=== PATIENT | male | born 2000 | race Caucasian/White ===

== ENCOUNTER 2021-03-29 17:06 | Emergency (ER) | payer SELFPAY ==
[2021-03-29] MEDS ORDERED: Lidocaine/EPINEPHrine/Tetracaine Soln 5 ML Each TOP ONE (17:33)
--- NOTE | 2021-03-29 18:19 | EDM.PDOC ---
ED HPI GENERAL MEDICAL PROBLEM - General Chief Complaint: Laceration Stated Complaint: LEFT HAND LACERATION Time Seen by Provider: 03/29/21 17:20 Source of Information: Reports: Patient History Limitations: Reports: No Limitations - History of Present Illness INITIAL COMMENTS - FREE TEXT/NARRATIVE: Patient presented to the ED because of laceration at the base of his left thumb. He was working on a pistol at work and the edge apparently slid on his left hand and sustained a 3 cm laceration which is shallow and has quit bleeding. - Related Data Allergies Allergy/AdvReac Type Severity Reaction Status Date / Time No Known Allergies Allergy Verified 03/29/21 17:36 Home Meds: Home Meds NK [No Known Home Meds] 03/29/21 [History] ED ROS GENERAL - Review of Systems Review Of Systems: See Below Constitutional: Reports: No Symptoms HEENT: Reports: No Symptoms Respiratory: Reports: No Symptoms Cardiovascular: Reports: No Symptoms Endocrine: Reports: No Symptoms GI/Abdominal: Reports: No Symptoms : Reports: No Symptoms Musculoskeletal: Reports: No Symptoms Skin: Reports: Wound Neurological: Reports: No Symptoms Psychiatric: Reports: No Symptoms ED EXAM, SKIN/RASH Exam: See Below Exam Limited By: No Limitations General Appearance: Alert, WD/WN, No Apparent Distress Ears: Normal External Exam, Normal Canal, Hearing Grossly Normal, Normal TMs Nose: Normal Inspection, Normal Mucosa, No Blood Throat/Mouth: Normal Inspection, Normal Lips, Normal Teeth, Normal Gums, Normal Oropharynx, Normal Voice, No Airway Compromise Head: Atraumatic, Normocephalic Neck: Normal Inspection, Supple, Non-Tender, Full Range of Motion Respiratory/Chest: No Respiratory Distress, Lungs Clear, Normal Breath Sounds, No Accessory Muscle Use, Chest Non-Tender Cardiovascular: Normal Peripheral Pulses, Regular Rate, Rhythm, No Edema, No Gallop, No JVD, No Murmur, No Rub GI/Abdominal: Normal Bowel Sounds, Soft, Non-Tender, No Organomegaly, No Distention, No Abnormal Bruit, No Mass (Male) Exam: No Hernia, Normal Inspection, Normal Prostate, Circumcised Rectal (Males) Exam: Normal Exam, Normal Rectal Tone, Prostate Normal Back Exam: Normal Inspection, Full Range of Motion, NT Extremities: Normal Inspection, Normal Range of Motion, Non-Tender, No Pedal Edema, Normal Capillary Refill Neurological: Alert, Oriented, CN II-XII Intact, Normal Cognition, Normal Gait, Normal Reflexes, No Motor/Sensory Deficits Psychiatric: Normal Affect, Normal Mood Lymphatic: No Adenopathy ED SKIN PROCEDURES - Laceration/Wound Repair Left Digit - 1st (Thumb) Appearance: Superficial, Clean Local Anesthesia - Bupivicaine (Marcaine): Other (LET top soln) Skin Prep: Chlorhexidine (Hibiciens) Closed with: Dermabond, Steri-Strips Lac/Wound length In cm: 3 Course - Vital Signs Text/Narrative:: UTD with immunization Last Recorded V/S: Last Vital Signs Temp 36.7 C 03/29/21 17:15 Pulse 69 03/29/21 18:25 Resp 20 03/29/21 18:25 BP 133/64 03/29/21 18:25 Pulse Ox 99 03/29/21 18:25 - Orders/Labs/Meds Meds: Medications Discontinued Medications Generic Name Dose Route Start Last Admin Trade Name Freq PRN Reason Stop Dose Admin Lidocaine/Tetracaine 5 ml 03/29/21 17:33 03/29/21 17:47 Lidocaine/Epinephrine/Tetracaine Soln 5 Ml Each TOP 03/29/21 17:34 5 ml ONETIME ONE Administration Departure - Departure Time of Disposition: 18:25 Disposition: Home, Self-Care 01 Condition: Good Clinical Impression: Laceration - Discharge Information Instructions: Laceration Care, Adult, [id number] Referrals: Ashutosh Jolley MD [Primary Care Provider] - Forms: ED Department Discharge Additional Instructions: Please read discharge instructions on laceration Keep the wound dry for 3 days No need to apply an antibiotic ointment, the glue is medicated Don't pit too much pressure on your left hand so the wound will not popen up The steri-strips will eventually fall off. Don't peel it. Follow up as needed Sepsis Event Note (ED) - Evaluation Sepsis Screening Result: No Definite Risk
== END 2021-03-29 18:29 | disposition home or self-care (01) ==
LOC: FB.ED 17:06
DX: S61.012A Laceration without foreign body of left thumb without damage to nail, initial encounter (principal); W26.8XXA Contact with other sharp object(s), not elsewhere classified, initial encounter; Y99.0 Civilian activity done for income or pay
CPT/HCPCS: 12001; 12002; 99282; A9270